=== PATIENT | male | born 2000 | race Caucasian/White ===

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

== ENCOUNTER 2020-04-25 14:23 | Emergency (ER) | payer BC ==
[2020-04-25] MEDS ORDERED: ONDANSETRON 4 MG/2 ML VIAL ONE (15:22)
[2020-04-25] MEDS ORDERED: NA CHLORIDE 0.9% 1,000 ML ONE (15:23)
[2020-04-25 15:53] LABS: Urine Blood NEGATIVE (NEG); Urine Glucose NEGATIVE (NEG); Urine Protein NEGATIVE (NEG); Urine Specific Gravity >1.030 (1.005-1.030); Urine pH 5.5 (5.0-7.0)
[2020-04-25 16:06] LABS: Absolute Lymphocytes (CBC) 2.2 K/uL (0.7-4.9); Basophils % 0.5 % (0-1.3); Lymphocytes % 31.3 % (15.3-44.8); MPV 9.9 fL (7.6-11.3); RBC Red Blood Cell Count 5.58 M/uL (4.33-5.43)
--- NOTE | 2020-04-25 16:14 | RAD REPORT ---
EXAM DESCRIPTION: CTAbdomen Pelvis W Contrast - 04/25/2020 3:42 pm CLINICAL HISTORY: Abdominal pain. epigastric pain, vomiting, diarrhea COMPARISON: No comparisons TECHNIQUE: Biphasic CT imaging of the abdomen and pelvis was performed with 100 ml non-ionic IV cont rast. All CT scans are performed using dose optimization technique as appropriate and may include automated exposure control or mA/KV adjustment according to patient size. FINDINGS: The lung bases are clear. The liver, spleen, pancreas, adrenal glands and kidneys are within normal limits. No bowel obstruction, free air, free fluid or abscess. The appendix is normal. No evidence of signi ficant lymphadenopathy. No suspicious bony findings. IMPRESSION: No acute intra-abdominal or pelvic finding.
[2020-04-25 16:17] LABS: ALT/SGPT 23 U/L (12-78); AST/SGOT 17 U/L (15-37); Albumin 4.1 g/dL (3.4-5.0); Alkaline Phosphatase 64 U/L (45-117); BUN Blood Urea Nitrogen 18 mg/dL (7-18); Bicarbonate 28 mmol/L (21-32); Bilirubin Direct < 0.1 mg/dL (0-0.2); Bilirubin Total 0.3 mg/dL (0.2-1.0); Glucose Level 91 mg/dL (74-106); Lipase 126 U/L (73-393); Protein, Total 8.6 g/dL (6.4-8.2); Sodium Level 140 mmol/L (136-145)
--- NOTE | 2020-04-25 16:24 | ER ---
Nurse's Notes [facility] Name: Lion Farris Age: 19 yrs Sex: Male : 2000 Arrival Date: 04/25/2020 Time: 14:27 Bed 25 Private MD: Diagnosis: Upper abdominal pain, unspecified Presentation: 04/25 14:42 Chief complaint: Patient states: Upper abdominal pain > 1 week. As soon as after I eat ca1 I get diarrhea and vomiting. Coronavirus screen: Client denies travel out of the [place] in the last 14 days. diarrhea, vomiting. Client presents with at least one sign or symptom that may indicate coronavirus-19. Standard/surgical mask placed on the client. Provider contacted for isolation considerations. Ebola Screen: Patient negative for fever greater than or equal to 101.5 degrees Fahrenheit, and additional compatible Ebola Virus Disease symptoms Patient denies exposure to infectious person. Patient denies travel to an Ebola-affected area in the 21 days before illness onset. No symptoms or risks identified at this time. Initial Sepsis Screen: Does the patient meet any 2 criteria? No. Patient's initial sepsis screen is negative. Does the patient have a suspected source of infection? No. Patient's initial sepsis screen is negative. Risk Assessment: Do you want to hurt yourself or someone else? Patient reports no desire to harm self or others. Onset of symptoms was April 25, 2020. 14:42 Method Of Arrival: Ambulatory ca1 14:42 Acuity: CHRISTIANNE 3 ca1 Historical: - Allergies: 14:43 No Known Allergies; ca1 - Home Meds: 14:43 None [Active]; ca1 - PMHx: 14:43 Hypertension; ca1 - PSHx: 14:43 None; ca1 - Immunization history:: Adult Immunizations unknown. - Social history:: Smoking status: Reported history of juuling and/or vaping. Screenin:23 Abuse screen: Denies threats or abuse. Denies injuries from another. Nutritional zb screening: Has had N/V for 3 or more days. Tuberculosis screening: No symptoms or risk factors identified. Fall Risk None identified. Assessment: 15:20 General: Appears in no apparent distress. uncomfortable, Behavior is calm, cooperative, zb appropriate for age, Reports feeling ill for > 3 days, Denies fever, fatigue, chills. Pain: Complains of pain in left upper quadrant and right upper quadrant and epigastric area Pain does not radiate. Quality of pain is described as aching, tender, Pain began last Saturday Aggravated by eating, drinking. Neuro: Level of Consciousness is awake, alert, obeys commands, Oriented to person, place, time, situation. Cardiovascular: Reports None Heart tones S1 S2 present Capillary refill < 3 seconds in bilateral Patient's skin is warm and dry. Rhythm is regular. Respiratory: Airway is patent Respiratory effort is even, unlabored, Respiratory pattern is regular, symmetrical, Breath sounds are clear bilaterally. Denies cough. GI: Abdomen is flat, Bowel sounds present X 4 quads. hyperactive in right upper quadrant, left upper quadrant, right lower quadrant and left lower quadrant Abdomen is tender to palpation in epigastric area, right upper quadrant and left upper quadrant Reports upper abdominal pain, diarrhea, intolerance of fluids, intolerance of food, nausea, vomiting, since Last Saturday. : No signs and/or symptoms were reported regarding the genitourinary system. EENT: No signs and/or symptoms were reported regarding the EENT system. Derm: Skin is intact, is healthy with good turgor, Skin is dry, Skin is normal, Skin temperature is warm. Musculoskeletal: Circulation, motion, and sensation intact. Range of motion: intact in all extremities. 16:16 Reassessment: Patient appears in no apparent distress at this time. Patient and/or zb family updated on plan of care and expected duration. Pain level reassessed. Patient is alert, oriented x 3, equal unlabored respirations, skin warm/dry/pink. no changes at this time. IV fluids continue to infuse. 16:41 Reassessment: patient gait even and steady. d/c instruction given no questions at this zb time. Vital Signs: 14:42 BP 123 / 81; Pulse 96; Resp 16 S; Temp 98(TE); Pulse Ox 100% on R/A; Weight 113.4 kg ca1 (R); Height 6 ft. 2 in. (187.96 cm) (R); Pain 2/10; 16:16 BP 122 / 74; Pulse 69; Resp 16; Pulse Ox 100% on R/A; zb 14:42 Body Mass Index 32.10 (113.40 kg, 187.96 cm) ca1 ED Course: 14:27 Patient arrived in ED. ds1 14:43 Triage completed. ca1 14:43 Arm band placed on right wrist. ca1 14:44 Blaise Garcia PA is PHCP. [facility] 14:44 Manuel Russell MD is Attending Physician. [facility] 14:50 Cony Chambers, GISELA is Primary Nurse. zb 15:20 Inserted saline lock: 20 gauge in left antecubital area, using aseptic technique. Blood zb collected. 15:23 Patient has correct armband on for positive identification. Bed in low position. Call zb light in reach. Side rails up X 1. Pulse ox on. NIBP on. Door closed. Noise minimized. 15:42 CT Abd/Pelvis - IV Contrast Only In Process Unspecified. EDMS 16:23 David Canales MD is Referral Physician. [facility] 16:41 No provider procedures requiring assistance completed. IV discontinued, intact, zb bleeding controlled, No redness/swelling at site. Pressure dressing applied. Administered Medications: 15:20 Drug: NS 0.9% 1000 ml Route: IV; Rate: 1 bolus; Site: left antecubital; zb 15:20 Drug: Zofran (Ondansetron) 4 mg Route: IVP; Site: left antecubital; zb Outcome: 16:24 Discharge ordered by MD. [facility] 16:41 Discharged to home ambulatory. zb 16:41 Condition: stable 16:41 Discharge instructions given to patient, Instructed on discharge instructions, follow up and referral plans. medication usage, Demonstrated understanding of instructions, follow-up care, medications, Prescriptions given X 3. 16:42 Patient left the ED. zb Signatures: Dispatcher [employer] EDMS Blaise Garcia PA PA jmm Sanford, Demi ds1 Virginie Kaminski RN RN ca1 Cony Chambers RN RN zb
--- NOTE | 2020-04-25 16:24 | EDPHYS ---
Physician Documentation [facility] Name: Lion Farris Age: 19 yrs Sex: Male : 2000 Arrival Date: 04/25/2020 Time: 14:27 Bed 25 Private MD: ED Physician Manuel Russell HPI: 04/25 14:50 This 19 yrs old Male presents to ER via Ambulatory with complaints of m Abdominal Pain. 14:50 The patient presents with abdominal pain. Onset: The symptoms/episode began/occurred jmm gradually, 1 week(s) ago. The symptoms do not radiate. Associated signs and symptoms: Pertinent positives: nausea and vomiting, diarrhea. The symptoms are described as achy. Modifying factors: The symptoms are alleviated by nothing, the symptoms are aggravated by movement. The patient has not experienced similar symptoms in the past. Denies any recent travel or abx use. Historical: - Allergies: 14:43 No Known Allergies; ca1 - Home Meds: 14:43 None [Active]; ca1 - PMHx: 14:43 Hypertension; ca1 - PSHx: 14:43 None; ca1 - Immunization history:: Adult Immunizations unknown. - Social history:: Smoking status: Reported history of juuling and/or vaping. ROS: 14:50 Constitutional: Negative for fever, chills, and weight loss, Cardiovascular: Negative jmm for chest pain, palpitations, and edema, Respiratory: Negative for shortness of breath, cough, wheezing, and pleuritic chest pain. 14:50 Abdomen/GI: Positive for abdominal pain, nausea and vomiting, diarrhea. 14:50 All other systems are negative. Exam: 14:50 Constitutional: This is a well developed, well nourished patient who is awake, alert, jmm and in no acute distress. Head/Face: atraumatic. Eyes: EOMI, no conjunctival erythema appreciated ENT: Moist Mucus Membranes Neck: Trachea midline, Supple Chest/axilla: Normal chest wall appearance and motion. Cardiovascular: Regular rate and rhythm. No edema appreciated Respiratory: Normal respirations, no respiratory distress appreciated 14:50 Back: Normal ROM Skin: General appearance color normal MS/ Extremity: Moves all extremities, no obvious deformities appreciated, no edema noted to the lower extremities Neuro: Awake and alert, normal gait Psych: Behavior is normal, Mood is normal, Patient is cooperative and pleasant 14:50 Abdomen/GI: Inspection: abdomen appears normal, Bowel sounds: normal, Palpation: soft, mild abdominal tenderness, in the epigastric area, right upper quadrant and left upper quadrant. Vital Signs: 14:42 BP 123 / 81; Pulse 96; Resp 16 S; Temp 98(TE); Pulse Ox 100% on R/A; Weight 113.4 kg ca1 (R); Height 6 ft. 2 in. (187.96 cm) (R); Pain 2/10; 16:16 BP 122 / 74; Pulse 69; Resp 16; Pulse Ox 100% on R/A; zb 14:42 Body Mass Index 32.10 (113.40 kg, 187.96 cm) ca1 MDM: 14:46 Patient medically screened. [facility] 16:22 Data reviewed: vital signs, nurses notes. Counseling: I had a detailed discussion with adrian the patient and/or guardian regarding: the historical points, exam findings, and any diagnostic results supporting the discharge/admit diagnosis, lab results, radiology results, the need for outpatient follow up, to return to the emergency department if symptoms worsen or persist or if there are any questions or concerns that arise at home. ED course: Patient is alert and non toxic in appearance in the ED. CT negative. Patient is given strict return precautions. patient understood and agrees with the plan of care. . 04/25 14:50 Order name: Basic Metabolic Panel; Complete Time: 16:19 [facility] 04/25 14:50 Order name: CBC with Diff; Complete Time: 16:11 [facility] 04/25 14:50 Order name: Hepatic Function; Complete Time: 16:19 [facility] 04/25 14:50 Order name: Lipase; Complete Time: 16:19 [facility] 04/25 14:50 Order name: CT Abd/Pelvis - IV Contrast Only; Complete Time: 16:15 [facility] 04/25 15:44 Order name: Urine Dipstick--Ancillary (enter results); Complete Time: 15:57 [facility] 04/25 14:50 Order name: IV Saline Lock; Complete Time: 15:20 [facility] 04/25 14:50 Order name: Labs collected and sent; Complete Time: 15:20 [facility] 04/25 14:50 Order name: Urine Dipstick-Ancillary (obtain specimen); Complete Time: 15:31 [facility] Administered Medications: 15:20 Drug: NS 0.9% 1000 ml Route: IV; Rate: 1 bolus; Site: left antecubital; zb 15:20 Drug: Zofran (Ondansetron) 4 mg Route: IVP; Site: left antecubital; zb Disposition: 18:32 Co-signature as Attending Physician, Manuel Russell MD. rn Disposition: 04/25/20 16:24 Discharged to Home. Impression: Upper abdominal pain, unspecified. - Condition is Stable. - Discharge Instructions: Abdominal Pain, Adult. - Prescriptions for Zofran ODT 4 mg Oral tablet,disintegrating - place 1 tablet by TRANSLINGUAL route every 4-6 hours; 20 tablet. Bentyl 20 mg Oral Tablet - take 2 tablet by ORAL route every 6 hours As needed; 40 tablet. Pepcid 20 mg Oral Tablet - take 1 tablet by ORAL route every 12 hours for 10 days; 20 tablet. - Medication Reconciliation Form, Thank You Letter, Antibiotic Education, Prescription Opioid Use form. - Follow up: David Canales MD; When: 2 - 3 days; Reason: Recheck today's complaints, Continuance of care, Re-evaluation by your physician. Signatures: Dispatcher [employer] EDMS Blaise Garcia PA PA jmm Nieto, Roman, MD MD rn Acob, GISELA Rachel RN, Zipporah, RN RN zb Corrections: (The following items were deleted from the chart) 16:42 16:24 04/25/2020 16:24 Discharged to Home. Impression: Upper abdominal pain, zb unspecified. Condition is Stable. Forms are Medication Reconciliation Form, Thank You Letter, Antibiotic Education, Prescription Opioid Use. Follow up: David Canales; When: 2 - 3 days; Reason: Recheck today's complaints, Continuance of care, Re-evaluation by your physician. tra
[2020-04-25 17:58] VITALS: TEMP 98; O2SAT 100
[2020-04-25 17:59] VITALS: BP 122/74
== END 2020-04-25 16:42 | disposition home or self-care (01) ==
LOC: ER 14:23
DX: R10.10 Upper abdominal pain, unspecified (principal); R11.2 Nausea with vomiting, unspecified; I10 Essential (primary) hypertension; Z87.891 Personal history of nicotine dependence
CPT/HCPCS: 85025; 80048; 36415; 82565; 80076; 81003; 83690; 74177; 96374; 99284; Q9967; J7030; J2405

== ENCOUNTER 2020-06-23 00:47 | Emergency (ER) | payer BC ==
[2020-06-23 02:18] LABS: SARS-COV-2 RT PCR NEGATIVE (NEGATIVE)
--- NOTE | 2020-06-23 02:43 | ER ---
Nurse's Notes [facility] Name: Lion Farris Age: 19 yrs Sex: Male : 2000 Arrival Date: 06/23/2020 Time: 00:50 Bed 8 Private MD: Diagnosis: Pharyngitis Presentation: 06/23 01:05 Chief complaint: Patient states: sore throat for several days. Coronavirus screen: tl1 Client denies travel out of the [place] in the last 14 days. At this time, the client does not indicate any symptoms associated with coronavirus-19. Ebola Screen: Patient negative for fever greater than or equal to 101.5 degrees Fahrenheit, and additional compatible Ebola Virus Disease symptoms Patient denies exposure to infectious person. Patient denies travel to an Ebola-affected area in the 21 days before illness onset. Initial Sepsis Screen: Does the patient meet any 2 criteria? No. Patient's initial sepsis screen is negative. Does the patient have a suspected source of infection? No. Patient's initial sepsis screen is negative. Risk Assessment: Do you want to hurt yourself or someone else? Patient reports no desire to harm self or others. Onset of symptoms is unknown. 01:05 Method Of Arrival: Ambulatory tl1 01:05 Acuity: CHRISTIANNE 4 tl1 Historical: - Allergies: 01:07 No Known Allergies; tl1 - Home Meds: 01:07 None [Active]; tl1 - PMHx: 01:07 Hypertension; tl1 - PSHx: 01:07 None; tl1 - Immunization history:: Adult Immunizations up to date. - Social history:: Smoking status: Patient denies any tobacco usage or history of. Screenin:09 Abuse screen: Denies threats or abuse. Denies injuries from another. Nutritional tl1 screening: No deficits noted. Tuberculosis screening: No symptoms or risk factors identified. Fall Risk None identified. Assessment: 01:08 General: Appears in no apparent distress. Pain: Complains of pain in left aspect of tl1 posterior pharynx and right aspect of posterior pharynx Pain currently is 4 out of 10 on a pain scale. Aggravated by swallowing. Neuro: No deficits noted. Cardiovascular: Denies chest pain. Respiratory: Airway is patent Respiratory effort is even, unlabored, Breath sounds are clear bilaterally. GI: No signs and/or symptoms were reported involving the gastrointestinal system. : No signs and/or symptoms were reported regarding the genitourinary system. EENT: Throat is reddened Reports pain when swallowing. Derm: No deficits noted. Musculoskeletal: No deficits noted. 02:53 Reassessment: Patient appears in no apparent distress at this time. Patient and/or jb4 family updated on plan of care and expected duration. Pain level reassessed. Patient is alert, oriented x 3, equal unlabored respirations, skin warm/dry/pink. Vital Signs: 01:06 BP 132 / 85; Pulse 89; Resp 16; Temp 98.1; Pulse Ox 98% ; Weight 117.93 kg; Height 6 tl1 ft. 2 in. (187.96 cm); Pain 4/10; 02:30 BP 136 / 86; Pulse 90; Resp 16; Pulse Ox 98% on R/A; jb4 01:06 Body Mass Index 33.38 (117.93 kg, 187.96 cm) tl1 ED Course: 00:50 Patient arrived in ED. cf2 01:06 Triage completed. tl1 01:08 Arm band placed on right wrist. tl1 01:09 Abida Gaming, RN is Primary Nurse. 01:09 Patient has correct armband on for positive identification. Bed in low position. Call light in reach. Side rails up X 1. Pulse ox on. NIBP on. 01:45 Bud Lanier MD is Attending Physician. pkl 02:30 No provider procedures requiring assistance completed. Patient did not have IV access jb4 during this emergency room visit. Administered Medications: 02:52 Drug: Acyclovir 800 mg Route: PO; jb4 02:52 Follow up: Response: Medication administered at discharge. jb4 Outcome: 02:42 Discharge ordered by . pkl 02:54 Discharged to home ambulatory. jb4 02:54 Condition: stable 02:54 Discharge instructions given to patient, Instructed on discharge instructions, follow up and referral plans. medication usage, Demonstrated understanding of instructions, follow-up care, medications, Prescriptions given X 1. 02:55 Patient left the ED. jb4 Signatures: Bud Lanier MD MD pkJessy Stewart RN RN tl1 Baldemar Nolasco RN RN jb4 Abida Gaming RN RN Wolf Hankins cf2
--- NOTE | 2020-06-23 02:43 | EDPHYS ---
Physician Documentation [facility] Name: Lion Farris Age: 19 yrs Sex: Male : 2000 Arrival Date: 06/23/2020 Time: 00:50 Bed 8 Private MD: ED Physician Bud Lanier HPI: 06/23 02:38 This 19 yrs old Male presents to ER via Ambulatory with complaints of Sore pkl Throat. 02:38 The patient describes throat pain as constant. Onset: The symptoms/episode pkl began/occurred 1 week(s) ago. Historical: - Allergies: 01:07 No Known Allergies; tl1 - Home Meds: 01:07 None [Active]; tl1 - PMHx: 01:07 Hypertension; tl1 - PSHx: 01:07 None; tl1 - Immunization history:: Adult Immunizations up to date. - Social history:: Smoking status: Patient denies any tobacco usage or history of. ROS: 02:38 Eyes: Negative for injury, pain, redness, and discharge. pkl 02:38 ENT: Positive for sore throat. 02:38 Neck: Negative for stiffness. 02:38 Cardiovascular: Negative for chest pain. 02:38 Respiratory: Negative for cough, shortness of breath. 02:38 Abdomen/GI: Negative for abdominal pain, nausea, vomiting, and diarrhea. 02:38 Back: Negative for acute changes. 02:38 : Negative for urinary symptoms. 02:38 MS/extremity: Negative for acute changes. 02:38 Skin: Negative for rash. 02:38 Neuro: Negative for altered mental status. Exam: 02:38 Head/Face: Normocephalic, atraumatic. Eyes: Pupils equal round and reactive to light, pkl extra-ocular motions intact. Lids and lashes normal. Conjunctiva and sclera are non-icteric and not injected. Cornea within normal limits. Periorbital areas with no swelling, redness, or edema. 02:38 ENT: Posterior pharynx: erythema, that is mild. 02:38 Neck: Exam negative for nuchal rigidity. 02:38 Chest/axilla: Exam negative for acute changes. 02:38 Cardiovascular: Rate: normal, Rhythm: regular. 02:38 Respiratory: the patient does not display signs of respiratory distress, Respirations: normal, Breath sounds: are clear throughout. 02:38 Abdomen/GI: Bowel sounds: normal, Palpation: abdomen is soft and non-tender, in all quadrants. 02:38 Back: Exam negative for acute changes. 02:38 : Exam negative for acute changes. 02:38 Musculoskeletal/extremity: Exam is negative for acute changes. 02:38 Skin: Exam negative for rash. 02:38 Neuro: Orientation: is normal, Mentation: is normal, Cranial nerves: grossly normal, Motor: is normal. Vital Signs: 01:06 BP 132 / 85; Pulse 89; Resp 16; Temp 98.1; Pulse Ox 98% ; Weight 117.93 kg; Height 6 tl1 ft. 2 in. (187.96 cm); Pain 4/10; 02:30 BP 136 / 86; Pulse 90; Resp 16; Pulse Ox 98% on R/A; jb4 01:06 Body Mass Index 33.38 (117.93 kg, 187.96 cm) tl1 MDM: 01:45 Patient medically screened. pkl 02:38 Data reviewed: vital signs, nurses notes, lab test result(s). pk 06/23 01:12 Order name: Flu tl1 06/23 01:13 Order name: Group A Streptococcus Rapid Sc; Complete Time: 02:43 EDMS 06/23 02:18 Order name: COVID-19/FLU A+B; Complete Time: 02:37 EDMS 06/23 02:39 Order name: Throat Culture EDMS Administered Medications: 02:52 Drug: Acyclovir 800 mg Route: PO; jb4 02:52 Follow up: Response: Medication administered at discharge. jb4 Disposition: 06/23/20 02:42 Discharged to Home. Impression: Pharyngitis. - Condition is Stable. - Prescriptions for Acyclovir 400 mg Oral Tablet - take 1 tablet by ORAL route 3 times per day; 20 tablet. - Medication Reconciliation Form, Thank You Letter, Antibiotic Education, Prescription Opioid Use form. - Follow up: Private Physician; When: 2 - 3 days; Reason: Re-evaluation by your physician. - Problem is new. - Symptoms are unchanged. Signatures: Dispatcher [employer] EDMI Bud Lanier MD MD pkl Jessy Almaraz RN RN tl1 Baldemar Nolasco RN RN jb4 Corrections: (The following items were deleted from the chart) 01:35 01:13 Group A Streptococcus Rapid Sc+[id number].LAB.BRZ ordered. EDMS EDMS 01:36 01:13 Influenza Screen (A ordered. EDMS EDMS 02:55 02:42 06/23/2020 02:42 Discharged to Home. Impression: Pharyngitis. Condition is jb4 Stable. Forms are Medication Reconciliation Form, Thank You Letter, Antibiotic Education, Prescription Opioid Use. Follow up: Private Physician; When: 2 - 3 days; Reason: Re-evaluation by your physician. Problem is new. Symptoms are unchanged. pkl
[2020-06-23 02:59] VITALS: TEMP 98.1; O2SAT 98
[2020-06-23 03:01] VITALS: BP 136/86
[2020-06-23] MEDS ORDERED: ACYCLOVIR 400 MG TABLET ONE (03:05)
== END 2020-06-23 02:55 | disposition home or self-care (01) ==
LOC: ER 00:47
DX: J02.9 Acute pharyngitis, unspecified (principal); Z20.822 Contact with and (suspected) exposure to COVID-19; I10 Essential (primary) hypertension
CPT/HCPCS: 87070; 87081; 0240U; 99283

== ENCOUNTER 2021-05-09 15:01 | Emergency (ER) | payer BC ==
--- NOTE | 2021-05-09 16:10 | RAD REPORT ---
EXAM DESCRIPTION: RAD - Chest Pa And Lat (2 Views) - 05/09/2021 4:02 pm CLINICAL HISTORY: COUGH Chest pain. COMPARISON: ABDOMEN 1 VIEW KUB dated 01/06/2015 FINDINGS: The lungs are clear. The heart is normal in size. No displaced fractures. IMPRESSION: No acute or concerning finding suspected.
[2021-05-09 16:58] LABS: SARS-COV-2 RT PCR NEGATIVE (NEGATIVE)
--- NOTE | 2021-05-09 17:03 | ER ---
Nurse's Notes [facility] Name: Lion Farris Age: 20 yrs Sex: Male : 2000 Arrival Date: 05/09/2021 Time: 15:05 Bed 8 Private MD: Diagnosis: Influenza due to identified novel influenza A virus with other respiratory manifestations Presentation: 05/09 15:16 Chief complaint: Patient states: "I am sick. I've been coughing, fever, sore throat, ab2 body aches and chills for 3 days." Pt denies n/v/d. Coronavirus screen: Vaccine status: Patient reports receiving the 2nd dose of the covid vaccine. chills, cough unrelated to allergies, fatigue, fever, runny nose, shortness of breath, sore throat, At this time, the client does not indicate any symptoms associated with coronavirus-19. Ebola Screen: Patient negative for fever greater than or equal to 101.5 degrees Fahrenheit, and additional compatible Ebola Virus Disease symptoms Patient denies exposure to infectious person. Patient denies travel to an Ebola-affected area in the 21 days before illness onset. No symptoms or risks identified at this time. Initial Sepsis Screen: Does the patient meet any 2 criteria? No. Patient's initial sepsis screen is negative. Does the patient have a suspected source of infection? No. Patient's initial sepsis screen is negative. Risk Assessment: Do you want to hurt yourself or someone else? Patient reports no desire to harm self or others. Onset of symptoms is unknown. 15:16 Method Of Arrival: Ambulatory ab2 15:16 Acuity: CHRISTIANNE 4 ab2 Triage Assessment: 15:19 General: Appears in no apparent distress. comfortable, Behavior is calm, cooperative, ab2 appropriate for age. Pain: Complains of pain in neck. EENT: Reports pain when swallowing. Respiratory: Reports shortness of breath cough that is Airway is patent Respiratory effort is even, unlabored, Respiratory pattern is regular, symmetrical. Musculoskeletal: Reports body aches. Historical: - Allergies: 15:19 No Known Allergies; ab2 - Home Meds: 15:19 None [Active]; ab2 - PMHx: 15:19 Hypertension; ab2 - PSHx: 15:19 None; ab2 - Immunization history:: Adult Immunizations up to date. - Social history:: Smoking status: Patient denies any tobacco usage or history of. Screenin:07 Abuse screen: Denies threats or abuse. Nutritional screening: No deficits noted. vg1 Tuberculosis screening: No symptoms or risk factors identified. Fall Risk No fall in past 12 months (0 pts). No secondary diagnosis (0 pts). No IV (0 pts). Ambulatory Aid- None/Bed Rest/Nurse Assist (0 pts). Gait- Normal/Bed Rest/Wheelchair (0 pts) Mental Status- Oriented to own ability (0 pts). Total Alexandra Fall Scale indicates No Risk (0-24 pts). Assessment: 16:05 General: Appears in no apparent distress. comfortable, Behavior is calm, cooperative. vg1 Pain: Complains of pain in throat Pain currently is 3 out of 10 on a pain scale. Pain began 2-3 days ago. Neuro: Level of Consciousness is awake, alert, obeys commands, Oriented to person, place, time, situation. Cardiovascular: Patient's skin is warm and dry. Respiratory: Reports cough that is Airway is patent Respiratory effort is even, unlabored. GI: Patient currently denies diarrhea, nausea, vomiting. : No signs and/or symptoms were reported regarding the genitourinary system. EENT: No signs and/or symptoms were reported regarding the EENT system. Derm: Skin is intact, is healthy with good turgor. Musculoskeletal: Circulation, motion, and sensation intact. 17:14 Reassessment: Patient appears in no apparent distress at this time. No changes from vg1 previously documented assessment. Patient and/or family updated on plan of care and expected duration. Pain level reassessed. Patient is alert, oriented x 3, equal unlabored respirations, skin warm/dry/pink. Vital Signs: 15:16 BP 134 / 91; Pulse 119; Resp 18; Temp 97.9(TE); Pulse Ox 99% on R/A; Weight 113.4 kg; ab2 Height 6 ft. 2 in. (187.96 cm); Pain 3/10; 16:08 BP 131 / 84; Pulse 110; Resp 16; Pulse Ox 98% on R/A; vg1 17:10 BP 122 / 84; Pulse 105; Resp 18; Pulse Ox 99% on R/A; vg1 15:16 Body Mass Index 32.10 (113.40 kg, 187.96 cm) ab2 ED Course: 15:05 Patient arrived in ED. mr 15:15 Rene Edwards PA is PHCP. cp 15:15 Quintin Hardy DO is Attending Physician. cp 15:19 Triage completed. ab2 15:20 Arm band placed on right wrist. ab2 16:01 XRAY Chest Pa And Lat (2 Views) In Process Unspecified. EDMS 16:05 Ruth Byers, RN is Primary Nurse. vg1 16:07 Patient has correct armband on for positive identification. Bed in low position. Call vg1 light in reach. Adult w/ patient. 16:07 No provider procedures requiring assistance completed. Patient did not have IV access vg1 during this emergency room visit. Administered Medications: No medications were administered Outcome: 17:02 Discharge ordered by MD. cp 17:14 Discharged to home ambulatory, with family. vg1 17:14 Condition: good 17:14 Discharge instructions given to patient, Instructed on discharge instructions, follow up and referral plans. medication usage, Demonstrated understanding of instructions, follow-up care, medications, Prescriptions given X 2. 17:15 Patient left the ED. vg1 Signatures: Dispatcher [employer] EDNH Dave Filomena mr Rene Edwards PA PA cp Garcia, Victoria, RN RN vg1 Myron Escobedo ab2
--- NOTE | 2021-05-09 17:03 | EDPHYS ---
Physician Documentation [facility] Name: Lion Farris Age: 20 yrs Sex: Male : 2000 Arrival Date: 05/09/2021 Time: 15:05 Bed 8 Private MD: ED Physician Quintin Hardy HPI: 05/09 15:35 This 20 yrs old Male presents to ER via Ambulatory with complaints of Fever, Cough. cp 15:35 The patient reports fever, not measured (subjective). cp 15:35 Onset: The symptoms/episode began/occurred 3 day(s) ago. Associated signs and symptoms: cp Pertinent positives: cough, sore throat, body aches, Pertinent negatives: abdominal pain, chest pain, diarrhea, vomiting. Historical: - Allergies: 15:19 No Known Allergies; ab2 - Home Meds: 15:19 None [Active]; ab2 - PMHx: 15:19 Hypertension; ab2 - PSHx: 15:19 None; ab2 - Immunization history:: Adult Immunizations up to date. - Social history:: Smoking status: Patient denies any tobacco usage or history of. ROS: 15:40 Constitutional: Positive for body aches, chills, Negative for fever, poor PO intake. cp 15:40 Eyes: Negative for injury, pain, redness, and discharge. cp 15:40 ENT: Negative for ear pain, sore throat, difficulty swallowing, difficulty handling secretions. 15:40 Cardiovascular: Negative for chest pain, palpitations. 15:40 Respiratory: Positive for cough, Negative for shortness of breath, wheezing. 15:40 Abdomen/GI: Negative for abdominal pain, nausea, vomiting, and diarrhea. 15:40 Neuro: Negative for altered mental status, headache, weakness. cp 15:40 All other systems are negative. cp Exam: 15:45 Constitutional: The patient appears in no acute distress, alert, awake, non-toxic, well cp developed, well nourished. 15:45 Head/Face: Normocephalic, atraumatic. cp 15:45 Eyes: Periorbital structures: appear normal, Conjunctiva: normal, no exudate, no injection, Sclera: no appreciated abnormality, Lids and lashes: appear normal, bilaterally. 15:45 ENT: External ear(s): are unremarkable, Ear canal(s): are normal, clear, TM's: dullness, bilaterally, Nose: is normal, Mouth: Lips: moist, Oral mucosa: moist, Posterior pharynx: Airway: no evidence of obstruction, patent, Tonsils: no enlargement, no exudate, erythema, that is mild, exudate, is not appreciated. 15:45 Neck: ROM/movement: is normal, is supple, no meningismus, no nuchal rigidity, Lymph nodes: no appreciated lymphadenopathy. 15:45 Chest/axilla: Inspection: normal. 15:45 Cardiovascular: Rate: tachycardic, Rhythm: regular. 15:45 Respiratory: the patient does not display signs of respiratory distress, Respirations: normal, no use of accessory muscles, no retractions, labored breathing, is not present, Breath sounds: bronchial sounds, that are mild, are heard diffusely, decreased breath sounds, are not appreciated, stridor, is not appreciated, wheezing: is not appreciated. 15:45 Abdomen/GI: Exam negative for discomfort, distension, guarding, Inspection: abdomen appears normal. 15:45 Back: pain, is absent, ROM is normal. 15:45 Skin: no rash present. Vital Signs: 15:16 BP 134 / 91; Pulse 119; Resp 18; Temp 97.9(TE); Pulse Ox 99% on R/A; Weight 113.4 kg; ab2 Height 6 ft. 2 in. (187.96 cm); Pain 3/10; 16:08 BP 131 / 84; Pulse 110; Resp 16; Pulse Ox 98% on R/A; vg1 17:10 BP 122 / 84; Pulse 105; Resp 18; Pulse Ox 99% on R/A; vg1 15:16 Body Mass Index 32.10 (113.40 kg, 187.96 cm) ab2 MDM: 15:21 Patient medically screened. cp 16:59 Data reviewed: vital signs, nurses notes, lab test result(s), radiologic studies, plain cp films. Test interpretation: by ED physician or midlevel provider: plain radiologic studies. Counseling: I had a detailed discussion with the patient and/or guardian regarding: the historical points, exam findings, and any diagnostic results supporting the discharge/admit diagnosis, lab results, radiology results. ED course: VSS. Patient appears non-toxic and no signs of respiratory distress. Will discharge to home for continued monitoring. 05/09 15:29 Order name: COVID-19/FLU A+B (Document "Date of Onset" if Symptomatic) cp 05/09 15:29 Order name: Strep; Complete Time: 16:29 cp 05/09 16:29 Interpretation: Reviewed. cp 05/09 15:29 Order name: XRAY Chest Pa And Lat (2 Views); Complete Time: 16:17 cp 05/09 16:17 Interpretation: Report reviewed. cp 05/09 16:22 Order name: Throat Culture EDMS Administered Medications: No medications were administered Disposition: 21:44 Co-signature as Attending Physician, Quintin Hardy DO I agree with the assessment and ms3 plan of care. Disposition Summary: 05/09/21 17:02 Discharge Ordered Location: Home cp Problem: new cp Symptoms: are unchanged cp Condition: Stable cp Diagnosis - Influenza due to identified novel influenza A virus with other respiratory cp manifestations Followup: cp - With: Private Physician - When: 2 - 3 days - Reason: Worsening of condition Discharge Instructions: - Discharge Summary Sheet cp - Influenza, Adult cp Forms: - Medication Reconciliation Form cp - Thank You Letter cp - Antibiotic Education cp - Prescription Opioid Use cp Prescriptions: - Ibuprofen 800 mg Oral Tablet - take 1 tablet by ORAL route every 8 hours As needed take with food; 30 tablet; cp Refills: 0, Product Selection Permitted - Tessalon Perles 100 mg Oral Capsule - take 1 capsule by ORAL route every 8 hours As needed; 15 capsule; Refills: 0, cp Product Selection Permitted Signatures: Dispatcher [employer] EDIA Rene Edwards PA PA cp Quintin Hardy DO DO ms3 Myron Escobedo2 Corrections: (The following items were deleted from the chart) 05/10 01:58 05/09 15:40 Constitutional: Negative for body aches, chills, fever, poor PO intake, cp cp
[2021-05-09 18:08] VITALS: TEMP 97.9
[2021-05-09 18:10] VITALS: BP 122/84; O2SAT 99
== END 2021-05-09 17:15 | disposition home or self-care (01) ==
LOC: ER 15:01
DX: J10.1 Influenza due to other identified influenza virus with other respiratory manifestations (principal); Z20.822 Contact with and (suspected) exposure to COVID-19; I10 Essential (primary) hypertension
CPT/HCPCS: 87070; 87081; 0240U; 71046; 99283